=== PATIENT | female | born 1965 | race Caucasian/White ===

== ENCOUNTER 2023-06-10 08:50 | Day surgery (SDC) | payer OTHER ==
[2023-06-08 08:24] VITALS: BMI 22.8
[2023-06-10] MEDS ORDERED: ACETAMINOPHEN INJECTION 100 ML IVPB ONE (10:50)
[2023-06-10] MEDS ORDERED: MIDAZOLAM HCL 2 MG/2 ML SINGLE DOSE VIAL ONE (10:50)
[2023-06-10] MEDS ORDERED: BUPIVACAINE HCL/PF 2.5 MG/ML - 30 ML VIAL IJ ONE (11:01)
[2023-06-10] MEDS ORDERED: PROPOFOL 20 ML ONE (11:19)
[2023-06-10] MEDS ORDERED: oxyCODONE HCL 5 MG TABLET PO PRN (12:02)
[2023-06-10] MEDS ORDERED: ONDANSETRON 4 MG/2 ML VIAL IVPUSH PRN (12:02)
[2023-06-10] MEDS ORDERED: FENTANYL CITRATE/PF 50 MCG/ML VIAL ONE ×2 (12:10→12:19)
[2023-06-10] MEDS ORDERED: LACTATED RINGERS SOLUTION 1,000 ML IV SCH (12:15)
[2023-06-10] MEDS ORDERED: KETOROLAC TROMETHAMINE 30 MG/1 ML VIAL ONE (12:29)
[2023-06-10] MEDS ORDERED: diazePAM 5 MG TABLET ONE (12:33)
[2023-06-10] MEDS ORDERED: diazePAM 5 MG TABLET PO PRN (13:17)
[2023-06-10] MEDS ORDERED: KETOROLAC TROMETHAMINE 30 MG/1 ML VIAL IVPUSH ONE (13:27)
[2023-06-10 13:56] VITALS: PULSE 66; RESP 18; TEMP 97.4
[2023-06-10 14:14] VITALS: BP 115/55
== END 2023-06-10 14:15 | disposition home or self-care (01) ==
LOC: FASU 08:50
PROVIDERS: ATTEND Orthopaedic Surgery
PROC: 0SBC4ZZ Excision of Right Knee Joint, Percutaneous Endoscopic Approach (ICD-10-PCS; 2023-06-10)
PROC: 0SQC4ZZ Repair Right Knee Joint, Percutaneous Endoscopic Approach (ICD-10-PCS; principal; 2023-06-10 11:37)
DX: S83.241A Other tear of medial meniscus, current injury, right knee, initial encounter (principal); S83.281A Other tear of lateral meniscus, current injury, right knee, initial encounter; M65.861 Other synovitis and tenosynovitis, right lower leg; S83.8X1A Sprain of other specified parts of right knee, initial encounter; X58.XXXA Exposure to other specified factors, initial encounter; Y92.9 Unspecified place or not applicable; Y93.9 Activity, unspecified
CPT/HCPCS: 94760

== ENCOUNTER 2024-07-28 09:05 | Emergency (ER) | payer OTHER ==
[2024-07-28 09:25] VITALS: BP 94/56; PULSE 75; RESP 18; TEMP 98.4; BMI 21.6
[2024-07-28] MEDS: oxyCODONE HCL 5 MG TABLET PO STA (11:10)
[2024-07-28] MEDS ORDERED: oxyCODONE HCL 5 MG TABLET ONE (11:11)
== END 2024-07-28 11:43 | disposition home or self-care (01) ==
LOC: FER 09:05
DX: S92.354A Nondisplaced fracture of fifth metatarsal bone, right foot, initial encounter for closed fracture (principal); M25.561 Pain in right knee; W01.0XXA Fall on same level from slipping, tripping and stumbling without subsequent striking against object, initial encounter
CPT/HCPCS: 73562-TC-RT-FY; 73590-TC-RT-FY; 73610-TC-RT-FY; 73630-TC-RT-FY; 99283-25